=== PATIENT | male | born 1995 | race Caucasian/White ===

== ENCOUNTER 2016-08-18 19:28 | Emergency (ER) | payer OTHER ==
[2016-08-18 19:37] VITALS: BP 113/73; PULSE 76; RESP 16; TEMP 98.1; O2SAT 99
[2016-08-18] MEDS ORDERED: Bacitracin 500 Units/gm Oint Foilpak UD TOP ONE (20:15)
[2016-08-18] MEDS ORDERED: Bacitracin 500 Units/gm Oint Foilpak UD ONE (20:27)
--- NOTE | 2016-08-19 03:14 | C.PDOC ---
History Of Present Illness 21 y/o male with hiv, cd4 unk, presents with wound to right anterior thigh that was sustained at noon while at work. pt was carrying a sofa with a metal frame with a sharp edge; soft dropped onto his right leg and caused a cut on leg. pt continued to work for several hours after this. no fever. +pain and swelling to area. Time Seen by Provider: 08/18/16 19:53 Chief Complaint (Nursing): Abnormal Skin Integrity History Per: EMS History/Exam Limitations: no limitations Onset/Duration Of Symptoms: Hrs (6) Location Of Injury: Right: Leg (anterior thigh) Quality Of Symptoms: Painful, Swollen Severity: Moderate Pain Scale Rating Of: 8 Past Medical History Reviewed: Historical Data, Nursing Documentation, Vital Signs Vital Signs: Last Vital Signs Temp 98.1 F 08/18/16 19:34 Pulse 76 08/18/16 19:34 Resp 16 08/18/16 19:34 BP 113/73 08/18/16 19:34 Pulse Ox 99 08/19/16 06:30 - Medical History PMH: Bronchitis, HIV (2012), Seizures (as a child) Surgical History: No Surg Hx Family History: States: Unknown Family Hx - Social History Hx Tobacco Use: No Hx Alcohol Use: No Hx Substance Use: No - Immunization History Hx Tetanus Toxoid Vaccination: No (unknown last booster) Hx Influenza Vaccination: No Hx Pneumococcal Vaccination: No Review Of Systems Constitutional: Negative for: Fever, Chills Cardiovascular: Negative for: Chest Pain, Palpitations Respiratory: Negative for: Cough, Shortness of Breath Gastrointestinal: Negative for: Nausea, Vomiting, Abdominal Pain Musculoskeletal: Positive for: Leg Pain Skin: Negative for: Rash Neurological: Negative for: Weakness, Numbness Physical Exam - Physical Exam Appears: Non-toxic, No Acute Distress Skin: Normal Color, Warm, Dry, Ecchymosis, Other (16 cm straight thin shallow abrasion along anterior thigh with approx 1 cm on either side of long abrasion is abraded area. wider 2 cm abrasion at distal end with adjacent ecchymoses, tenderness and mild swelling. thigh soft, no femur tenderness. from at knee. + 2 dp pulses. ) Gastrointestinal/Abdominal: Soft, No Tenderness Back: Normal Inspection, No CVA Tenderness, No Vertebral Tenderness Pulses: Left Dorsalis Pedis: Normal, Right Dorsalis Pedis: Normal Neurological/Psych: Oriented x3, Normal Speech, Normal Cognition, Normal Motor, Normal Sensation ED Course And Treatment O2 Sat by Pulse Oximetry: 99 Medical Decision Making Medical Decision Making: abrasion and contusion to thigh - tdap booster, keflex, bacitracin. tylenol. d /c with keflex pt eloped before official paperwork for discharge given Disposition Counseled Patient/Family Regarding: Diagnosis, Need For Followup, Rx Given - Disposition Disposition: ELOPEMENT - ER ONLY Disposition Time: 21:00 Condition: STABLE Additional Instructions: Apply bacitracin 2 x day to wound on thigh. Take keflex as prescribed. Follow up with your doctor siddharth one-two days for a wound check. Take your tramaold for pain. Return to ER for any worsening pain. Prescriptions: Cephalexin [cephalexin] 500 mg PO QID #20 cap Instructions: Contusion in Adults (ED), Abrasion (ED) - Clinical Impression Clinical Impression: Contusion of thigh, right, Abrasion, right thigh, initial encounter
== END 2016-08-18 20:01 | disposition left against medical advice (07) ==
LOC: C.ER 19:28
DX: S70.11XA Contusion of right thigh, initial encounter (principal); W45.8XXA Other foreign body or object entering through skin, initial encounter; Y92.89 Other specified places as the place of occurrence of the external cause; Y99.0 Civilian activity done for income or pay